=== PATIENT | male | born 1970 | race Caucasian/White ===

== ENCOUNTER 2020-02-14 10:09 | Outpatient (CLI) | payer BC, SELFPAY ==
--- NOTE | ~2020-02-14 | MR_ITS ---
EXAMINATION: MR cervical spine wo con DATE: 02/14/2020 10:47 INDICATION: Bilateral cervical radiculopathy. TECHNIQUE: Magnetic resonance imaging (MRI) of the cervical spine was performed without intravenous c ontrast. Sequences included sagittal T2-weighted FSE, sagittal STIR FSE, sagittal T1-weighted FSE, ax ial MERGE, and axial T2-weighted FSE. COMPARISON: Cervical spine MRI 04/21/2014 FINDINGS: There is 5 degrees dextrocurvature of cervical spine. There is hypolordosis of cervical spi ne. There is 2 mm retrolisthesis of C5 on C6 and C6 on C7. Vertebral body heights are normal. There i s moderately decreased disc height at C5-C6 and severely decreased disc height at C6-C7. The spinal c ord signal intensity is normal. The following disc levels are specifically discussed: C2-C3: The disc is bulging. There is mild left uncovertebral joint osteoarthritis. There is severe bi lateral facet joint osteoarthritis. There is mild bilateral neural foraminal stenosis. There is no ce ntral canal stenosis. C3-C4: The disc is bulging. There is mild right and moderate left uncovertebral joint osteoarthritis. There is moderate right and severe left facet joint osteoarthritis. There is mild right and moderate left neural foraminal stenosis. There is mild central canal stenosis. C4-C5: The disc is bulging. There is moderate bilateral uncovertebral joint osteoarthritis. There is moderate right and severe left facet joint osteoarthritis. There is mild right and moderate left neur al foraminal stenosis. There is mild central canal stenosis. C5-C6: The disc is bulging. There is severe bilateral uncovertebral joint osteoarthritis. There is mi ld bilateral facet joint osteoarthritis. There is severe bilateral neural foraminal stenosis. There i s mild central canal stenosis with ventral indentation of the spinal cord. C6-C7: The disc is bulging. There is severe bilateral uncovertebral joint osteoarthritis. There is mo derate bilateral facet joint osteoarthritis. There is severe right and moderate left neural foraminal stenosis. There is mild central canal stenosis. C7-T1: The disc is bulging. There is mild right and severe left uncovertebral joint osteoarthritis. T here is severe bilateral facet joint osteoarthritis. There is moderate bilateral neural foraminal ainsley nosis. There is mild central canal stenosis. IMPRESSION: 1. Severe cervical spondylosis, worsened from 04/21/2014. Reviewed, dictated and finalized at location A.
== END 2020-02-14 10:10 ==
PROVIDERS: PCP Family Medicine Adolescent Medicine; Visit Provider Family Medicine Adolescent Medicine
DX: M47.22 Other spondylosis with radiculopathy, cervical region (principal)
CPT/HCPCS: 72141

== ENCOUNTER → 2020-09-20 10:01 | Outpatient (CLI) | payer BC, SELFPAY ==
--- NOTE | ~2020-09-20 | XR_ITS ---
XR lumbar spine 2-3V DATE: 09/20/2020 10:20 INDICATION: Right sciatica TECHNIQUE: AP, lateral, coned lateral lumbosacral views COMPARISON: None FINDINGS: There is severe degenerative disc disease at L2-3, moderate degenerative disc disease at L3 -4 and severe degenerative disc disease at L4-5 and L5-S1. No fracture or dislocation or bone destruction is evident. The lumbar pedicles are intact. No spondyl olisthesis. The sacroiliac joints are normal. IMPRESSION: Multilevel degenerative disc disease, most severe at L2-3, L4-5 and L5-S1 Reviewed, dictated and finalized at location B.
== END ==
PROVIDERS: PCP Family Medicine Adolescent Medicine; Visit Provider Family Medicine Adolescent Medicine
DX: M54.31 Sciatica, right side (principal); M51.37 Other intervertebral disc degeneration, lumbosacral region
CPT/HCPCS: 72100

== ENCOUNTER → 2020-09-30 07:31 | Outpatient (CLI) | payer BC, SELFPAY ==
--- NOTE | ~2020-09-30 | MR_ITS ---
EXAMINATION: MR lumbar spine wo con DATE: 09/30/2020 08:15 INDICATION: Right-sided sciatica. Right leg weakness. Low back pain. TECHNIQUE: Magnetic resonance imaging (MRI) of the lumbar spine was performed without intravenous con trast. Sequences included sagittal T2-weighted FSE, sagittal T2-weighted FS FSE, sagittal T1-weighted FSE, and axial T2-weighted FSE. COMPARISON: Lumbar spine radiographs 09/20/2020 FINDINGS: There is 3 degrees dextrocurvature of lumbar spine. There is 3 mm retrolisthesis of L2 on L 3 and L3 on L4. Vertebral body heights are normal. There is a hemangioma in L3 vertebral body. There is severely decreased disc height at L2-L3, L4-L5, and L5-S1 and moderately decreased disc height at L3-L4 with endplate remodeling. The distal spinal cord signal intensity is normal. The conus medullar is is at T12. The following disc levels are specifically discussed: L1-L2: The disc does not extend beyond the endplate margin. There is moderate bilateral facet joint o steoarthritis. There is no neural foraminal stenosis. There is no central canal stenosis. L2-L3: The disc is bulging with superimposed right subarticular zone extrusion with 1.8 cm inferior e xtension and mass effect on the right L3 nerve root in right lateral recess. There is severe bilatera l facet joint osteoarthritis. There is moderate bilateral neural foraminal stenosis. There is mild ce ntral canal stenosis. L3-L4: The disc is bulging and has an annular fissure. There is severe bilateral facet joint osteoart hritis. There is mild right and moderate left neural foraminal stenosis. There is mild central canal stenosis. L4-L5: The disc is bulging and has an annular fissure. There is severe bilateral facet joint osteoart hritis. There is moderate bilateral neural foraminal stenosis. There is moderate central canal stenos is. L5-S1: The disc is bulging and has an annular fissure. There is severe bilateral facet joint osteoart hritis. There is moderate bilateral neural foraminal stenosis. There is mild central canal stenosis. IMPRESSION: 1. Severe lumbar spondylosis. Of note, an extrusion at L2-L3 exerts mass effect on right L3 nerve kianna t. Reviewed, dictated and finalized at location A. IMPRESSION: 1. Severe lumbar spondylosis. Of note, an extrusion at L2-L3 exerts mass effect on right L3 nerve root.
== END ==
PROVIDERS: PCP Family Medicine Adolescent Medicine; Visit Provider Family Medicine Adolescent Medicine
DX: M47.817 Spondylosis without myelopathy or radiculopathy, lumbosacral region (principal); M48.07 Spinal stenosis, lumbosacral region; M54.31 Sciatica, right side
CPT/HCPCS: 72148

== ENCOUNTER → 2020-10-10 10:52 | Outpatient (CLI) | payer BC, SELFPAY ==
--- NOTE | ~2020-10-10 | XR_ITS ---
XR_CERV2-3V_CR DATE: 10/10/2020 11:45 INDICATION: Cervical spinal fusion TECHNIQUE: 4 views COMPARISON: None FINDINGS: There is straightening of the cervical spine. There is postoperative change from anterior and interbody spinal surgical fusion at C5-7. No fracture or dislocation or locked facet. No prevertebral soft tissue swelling. There is mild anterolisthesis at C4-5 with posterior spurring at C5 superiorly. Mild to moderate degenerative disc disease at C7-T1. IMPRESSION: Straightening Status post anterior interbody spinal fusion at C5-C7 Mild anterolisthesis and posterior spurring at C4-5 Reviewed, dictated and finalized at Location A. Reviewed, dictated and finalized at location A.
== END ==
PROVIDERS: PCP Family Medicine Adolescent Medicine
DX: Z98.1 Arthrodesis status (principal)
CPT/HCPCS: 72040

== ENCOUNTER 2021-06-06 08:08 | Emergency (ER) | payer BC, SELFPAY ==
[2021-06-06 08:42] VITALS: BP 129/89; PULSE 70; RESP 14; TEMP 36.4; O2SAT 97
--- NOTE | 2021-06-06 09:18 | ED.SKABFB ---
HPI - Skin/Abscess/Foreign Bdy General Chief complaint: Skin/Abscess/Foreign Body <Radha Eugene PA-C - Last Filed: 06/06/21 09:23> Stated complaint: possible spider bite. right leg <Radha Eugene PA-C - Last Filed: 06/06/21 09:23> Time Seen by Provider: 06/06/21 08:59 <Radha Eugene PA-C - Last Filed: 06/06/21 09:23> Source: patient <Radha Eugene PA-C - Last Filed: 06/06/21 09:23> Mode of arrival: ambulatory <Radha Eugene PA-C - Last Filed: 06/06/21 09:23> Limitations: no limitations <JOSH Light Last Filed: 06/06/21 09:23> History of Present Illness HPI narrative: This is a 50-year-old male that presents to the emergency department for right lower extremity redness. Reports an area of redness and swelling to the right inner thigh. Present over the last 2 days. Denies fever or drainage. <Radha Eugene PA-C - Last Filed: 06/06/21 09:23> Related Data Allergies/Adverse reactions: Allergies Allergy/AdvReac Type Severity Reaction Status Date / Time No Known Allergies Allergy Verified 06/06/21 08:45 <Radha Eugene PA-C - Last Filed: 06/06/21 09:23> Review of Systems Review of Systems: CONSTITUTIONAL: Denies fever SKIN: Reports erythema <Radha Eugene PA-C - Last Filed: 06/06/21 09:23> All systems reviewed & are unremarkable except as noted in HPI and below <Radha Eugene PA-C - Last Filed: 06/06/21 09:23> [facility] Surgical History Surgical History: Surgical History (Updated 06/06/21 @ 09:22 by Radha Eugene PA-C) S/P cervical disc replacement <Radha Eugene PA-C - Last Filed: 06/06/21 09:23> Social History Social History: Social History (Updated 06/06/21 @ 09:21 by Radha Eugene PA-C) Smoking status: Current some day smoker <Radha Eugene PA-C - Last Filed: 06/06/21 09:23> Exam Narrative: GENERAL: Well-appearing, well-nourished, and in no acute distress. HEAD: Normocephalic, atraumatic. EYES: EOMI. EXTREMITIES: Normal range of motion. No edema. Right inner thigh with small area of erythema and induration, no central fluctuance to suggest abscess SKIN: Warm, dry, no rash. NEURO: No focal deficits. Alert and oriented x3. PSYCH: Normal mood and affect <Radha Eugene PA-C - Last Filed: 06/06/21 09:23> Course ENVIRONMENTAL ASSOCIATE/PA Physician Supervision I did not see this patient nor was the care plan discussed with me. I was available for evaluation and consultation, I agree with the documentation <Gerhard Interiano MD - Last Filed: 06/06/21 17:30> Vital Signs Vital signs: Vital Signs Temperature 36.4 C L 06/06/21 08:42 Pulse Rate 70 06/06/21 08:42 Respiratory Rate 14 06/06/21 08:42 Blood Pressure 129/89 06/06/21 08:42 Pulse Oximetry 97 06/06/21 08:42 Temperature 36.4 C L 06/06/21 08:42 Pulse Rate 70 06/06/21 10:01 Respiratory Rate 12 06/06/21 10:01 Blood Pressure 129/89 06/06/21 08:42 Pulse Oximetry 97 06/06/21 08:42 <Radha Eugene PA-C - Last Filed: 06/06/21 09:23> Vital Signs Temperature 36.4 C L 06/06/21 08:42 Pulse Rate 70 06/06/21 08:42 Respiratory Rate 14 06/06/21 08:42 Blood Pressure 129/89 06/06/21 08:42 Pulse Oximetry 97 06/06/21 08:42 Temperature 36.4 C L 06/06/21 08:42 Pulse Rate 70 06/06/21 10:01 Respiratory Rate 12 06/06/21 10:01 Blood Pressure 129/89 06/06/21 08:42 Pulse Oximetry 97 06/06/21 08:42 <Gerhard Interiano MD - Last Filed: 06/06/21 17:30> MDM - Skin/Abscess/Foreign Bdy MDM Narrative Medical decision making narrative: Patient presents to the emergency department for right lower extremity cellulitis. Patient is afebrile and nontoxic appearing. No lymphangitic streaking or concerning features on exam. No abscess on exam today. Patient will be started on oral antibiotics. He was instructed to have close follow-up with his primary doctor. He was given warnings to return to
[2021-06-06 10:01] VITALS: PULSE 70; RESP 12
== END 2021-06-06 10:02 | disposition home or self-care (01) ==
PROVIDERS: Emergency Provider Emergency Medicine; PCP Family Medicine Adolescent Medicine
DX: L03.115 Cellulitis of right lower limb (principal); F17.200 Nicotine dependence, unspecified, uncomplicated
CPT/HCPCS: 99283; A9270

== ENCOUNTER 2022-07-17 11:05 | Day surgery (SDC) | payer OTHER, SELFPAY ==
[2022-06-05 10:10] VITALS: BMI 24.0
[2022-07-03 13:58] VITALS: BMI 24.0
--- NOTE | 2022-07-16 12:55 | P.HP_ITS ---
History of Present Illness History of Present Illness Consent: Risks, benefits, and alternatives have been discussed and questions answered. Patient agrees to proceed with procedure. Chief complaint: Neoplasm Screening Narrative: Yg Caldwell is a 51 year old male referred for colon cancer screening. Review of Systems Review of Systems: All systems reviewed & are unremarkable except as noted in HPI and below PMFSH Past Medical History Medical History Chronic, continuous use of opioids 1-2 7.5 mg [place]/day PONV (postoperative nausea and vomiting) Psoriatic arthritis Surgical History Surgical History History of surgery on right wrist 2017 S/P cervical disc replacement Family History Family History Grandparent Diabetes mellitus Cerebrovascular accident Mother Diabetes mellitus Degenerative disc disease Depression Father Diabetes mellitus Hypertension Sibling Thyroid cancer Social History Social History Years smoked: 35 Smoking status: Current every day smoker Tobacco type: cigarettes Second hand tobacco smoke exposure: No Additional smoking assessment comments: 0.5-1 pack/week Alcohol intake: current Drinks per week: 1 Alcohol use details: beer Substance use: never Substance use type: does not use Living arrangements: alone Gender identity (if verbalized by the patient): Male Sexual Orientation (if Verbalized by the Patient): Straight or Heterosexual Spiritual care concerns: No Meds Home Medications and Allergies Home Medications Medication Instructions Recorded Confirmed Type tizanidine 4 mg capsule 4 mg PO QHS PRN muscle spasticity 02/21/22 07/17/22 Rx #30 caps clobetasol 0.05 % topical cream See Rx Instructions .Route 03/31/22 07/17/22 Rx .COMPLEX #60 grams ketoconazole 2 % topical cream 1 applic topical BID #30 grams 04/25/22 07/17/22 Rx lorazepam 2 mg tablet 2 mg PO QHS PRN anxiety #30 tabs 06/04/22 07/17/22 Rx duloxetine 30 mg capsule,delayed 30 mg PO QHS 07/03/22 07/17/22 History release (Cymbalta) hydrocodone 7.5 mg-acetaminophen 1 tablet PO TID PRN pain #90 tabs 07/05/22 07/17/22 Rx 325 mg tablet Allergies Allergy/AdvReac Type Severity Reaction Status Date / Time No Known Allergies Allergy Verified 07/17/22 12:08 Exam Const: General: alert Orientation/consciousness: patient oriented x3 Resp: Auscultation: clear to auscultation bilaterally Cardio: Rhythm: regular rhythm GI: GI Palp: Yes Soft to palpation and No Tenderness to palpation present (GI) Neuro: General: patient oriented x3 Assessment and Plan Assessment and plan (1) Colon cancer screening: Code(s): Z12.11 - Encounter for screening for malignant neoplasm of colon Status: Acute Assessment and Plan: Colonoscopy with possible biopsy or polypectomy or cautery or injection of substances.
[2022-07-17 12:00] VITALS: BP 141/98; PULSE 66; RESP 20; TEMP 36.8; O2SAT 98
--- NOTE | 2022-07-17 12:02 | WPDANESEPPF ---
Anes - Initial Pre Proc Eval Procedure: Operation Date: 07/17/22 13:30 Proposed Procedures p Screening Colonoscopy - Carter Morrow MD Date/Time: 07/17/22 12:02 Surgeon: Carter Morrow MD Pre Op Diagnosis: Neoplasm Screening Patient Data Age: 51 Gender: M Height: 2.01 m Weight: 97 kg Allergies Allergy/AdvReac Type Severity Reaction Status Date / Time No Known Allergies Allergy Verified 07/03/22 14:14 Home Medications Medication Instructions Recorded Confirmed Type tizanidine 4 mg capsule 4 mg PO QHS PRN muscle spasticity 02/21/22 07/03/22 Rx #30 caps clobetasol 0.05 % topical cream See Rx Instructions .Route 03/31/22 07/03/22 Rx .COMPLEX #60 grams ketoconazole 2 % topical cream 1 applic topical BID #30 grams 04/25/22 07/03/22 Rx lorazepam 2 mg tablet 2 mg PO QHS PRN anxiety #30 tabs 06/04/22 07/03/22 Rx duloxetine 30 mg capsule,delayed 30 mg PO QHS 07/03/22 07/03/22 History release (Cymbalta) hydrocodone 7.5 mg-acetaminophen 1 tablet PO TID PRN pain #90 tabs 07/05/22 Rx 325 mg tablet Patient hx anesthesia problems: post op nausea/vomiting Family hx anesthesia problems: none Results Review: All pre-operative results and documents have been reviewed as part of the pre-operative evaluation. [facility] Past Medical History Medical History (Updated 07/17/22 @ 12:07 by Vu Talamantes DO) Chronic, continuous use of opioids 1-2 7.5 mg [place]/day PONV (postoperative nausea and vomiting) Psoriatic arthritis Surgical History Surgical History History of surgery on right wrist 2017 S/P cervical disc replacement Family History Family History (Updated 10/23/21 @ 08:53 by Maryse Alvarado MA) Grandparent Diabetes mellitus Cerebrovascular accident Mother Diabetes mellitus Degenerative disc disease Depression Father Diabetes mellitus Hypertension Sibling Thyroid cancer Social History Social History (Updated 07/17/22 @ 12:06 by Vu Talamantes DO) Years smoked: 35 Smoking status: Current every day smoker Tobacco type: cigarettes Second hand tobacco smoke exposure: No Additional smoking assessment comments: 0.5-1 pack/week Alcohol intake: current Drinks per week: 1 Alcohol use details: beer Substance use: never Substance use type: does not use Gender identity (if verbalized by the patient): Male Sexual Orientation (if Verbalized by the Patient): Straight or Heterosexual Spiritual care concerns: No Anes - Eval Final PreProcedure Day of Procedure 07/17/22 12:02 Patient weight: normal Heart: regular rate and rhythm Lungs: clear to auscultation and normal air movement Airway: Mallampati scale class II Neurological: alert and oriented Last oral intake: >/= 8 hours ASA classification: III Emergent: no Anesthetic plan: proceed Anesthesia type and monitoring: general GIVS and standard monitoring Results Review: All pre-operative results and documents have been reviewed as part of the pre-operative evaluation. Informed Consent: The patient's anesthetic plan and its attendant risks and benefits were discussed with the patient/family/POA. Questions were solicited and answers provided to the satisfaction of the patient/family/POA.
[2022-07-17] MEDS: LACTATED RINGERS 1,000 ML 150 ML IV CONT (12:12)
[2022-07-17 13:31] VITALS: BP 133/103; PULSE 74; RESP 20; O2SAT 100
[2022-07-17 13:41] VITALS: BP 129/86; PULSE 73; RESP 18; O2SAT 100
--- NOTE | 2022-07-17 13:46 | WPDANESPN ---
Anes - Prog Note Post-Op Date/Time: 07/17/22 13:46 Cardiovascular status: normal Respiratory status: normal Airway patency: baseline Mental status: baseline Post-Op hydration status: normal Vital Signs: Last Vital Signs Temp 36.8 C 07/17/22 12:00 Pulse 73 07/17/22 13:41 Resp 18 07/17/22 13:41 BP 129/86 07/17/22 13:41 Pulse Ox 100 07/17/22 13:41 O2 Del Method Room Air 07/17/22 13:41 Pain Score (VAS): 0 I/O: Intake & Output 07/16/22 07/17/22 07/17/22 23:59 07:59 15:59 Intake Total 1000 Balance 1000 Post-procedural complaints: none Patient Feedback: Patient satisfied with anesthetic care. Other Findings: Patient vital signs back to baseline. Patient denies nausea and vomiting. Patient's pain under control. Patient OK for discharge.
[2022-07-17 13:51] VITALS: BP 142/90; PULSE 74; RESP 18; O2SAT 100
== END 2022-07-17 13:58 | disposition home or self-care (01) ==
PROVIDERS: PCP Family Medicine Adolescent Medicine; Visit Provider Internal Medicine Gastroenterology
PROC: 0DJD8ZZ Inspection of Lower Intestinal Tract, Via Natural or Artificial Opening Endoscopic (ICD-10-PCS; CPT 45378; principal; 2022-07-17 13:30)
DX: Z12.11 Encounter for screening for malignant neoplasm of colon (principal)
CPT/HCPCS: 45378